=== PATIENT | male | born 1990 | race Caucasian/White ===

== ENCOUNTER → 2020-12-22 | Outpatient (CLI) | payer OTHER ==
[2020-12-22 15:14] LABS: HEMOGLOBIN 15.2 gm/dl (14.0-17.5); RED BLOOD COUNT 4.83 M/UL (4.20-5.50); WHITE BLOOD COUNT 5.6 K/UL (4.5-11.0)
[2020-12-22 15:46] LABS: BUN/CREATININE RATIO 8 (0-10)
[2020-12-23 08:15] LABS: HIV SCREEN 4TH GENERATION WRFX Non Reactive (Non Reactive)
== END ==
LOC: LAB 12:50
PROVIDERS: Nurse Practitioner Psychiatric/Mental Health
DX: F11.20 Opioid dependence, uncomplicated (principal)
CPT/HCPCS: 36415; 80048; 80061; 83036; 84443; 85027; 86803; 87389

== ENCOUNTER → 2021-08-31 | Outpatient (CLI) | payer OTHER ==
[2021-08-31 17:53] LABS: HEMOGLOBIN 15.2 gm/dl (14.0-17.5); RED BLOOD COUNT 4.82 M/UL (4.20-5.50); WHITE BLOOD COUNT 6.5 K/UL (4.5-11.0)
[2021-08-31 18:19] LABS: BUN/CREATININE RATIO 10 (0-10)
[2021-09-02 07:12] LABS: ANTISTREPTOLYSIN O AB 90.6 IU/mL (0.0-200.0); RHEUMATOID ARTHRITIS FACTOR <10.0 IU/mL (<14.0); VITAMIN D, 25-HYDROXY 28.2 ng/mL (30.0-100.0)
[2021-09-02 08:16] LABS: HBSAG SCREEN Negative (Negative); HEP A AB, IGM Negative (Negative); HEP B CORE AB, IGM Negative (Negative); HEP C VIRUS AB <0.1 (0.0-0.9)
== END ==
LOC: RAD 16:15
PROVIDERS: Nurse Practitioner Family
DX: M54.2 Cervicalgia (principal); M54.50 Low back pain, unspecified; M54.6 Pain in thoracic spine; R05.9 Cough, unspecified; M79.641 Pain in right hand; M79.642 Pain in left hand; M12.9 Arthropathy, unspecified; Z00.00 Encounter for general adult medical examination without abnormal findings; R53.83 Other fatigue; E78.5 Hyperlipidemia, unspecified; I10 Essential (primary) hypertension; E53.8 Deficiency of other specified B group vitamins; E55.9 Vitamin D deficiency, unspecified; E61.1 Iron deficiency; D64.9 Anemia, unspecified; M89.9 Disorder of bone, unspecified; M43.17 Spondylolisthesis, lumbosacral region; M48.061 Spinal stenosis, lumbar region without neurogenic claudication; M48.07 Spinal stenosis, lumbosacral region; Z79.899 Other long term (current) drug therapy
CPT/HCPCS: 36415; 71046; 72050; 72072; 72110; 73130; 80053; 80061; 80074; 82150; 82607; 82728; 82746; 83540; 83550; 83690; 84443; 84550; 85027; 85652; 86038; 86060; 86140; 86431